=== PATIENT | female | born 1940 | race Caucasian/White ===

== ENCOUNTER 2022-03-05 13:04 | Inpatient (IN) ==
[2022-03-05] MEDS ORDERED: Naloxone 0.4 MG/ML INJ IVP PRN (16:30)
[2022-03-05] MEDS ORDERED: Ondansetron ODT 4 MG TAB.RAPDIS SL PRN (16:30)
[2022-03-05] MEDS ORDERED: Melatonin 3 MG TABLET PO PRN (16:30)
[2022-03-05 16:58] LABS: C-Reactive Protein 170 mg/L (Less than 10); Creatine Kinase 35 Units/L (30-223)
[2022-03-05] MEDS ORDERED: Gadolinium Contrast Agent (WT Based) IV PRN (16:59)
[2022-03-05] MEDS ORDERED: cefTRIAXone 1,000 MG in 0.9 % Sodium Chloride 10 ML IVP SCH (17:00)
[2022-03-05] MEDS ORDERED: *HR* LORazepam 0.5 MG TABLET PO ONE (17:08)
[2022-03-06 06:29] LABS: Basophils # 0.1 K/mcL (0.0-0.2); Basophils % 0.6 %; Eosinophils # 0.1 K/mcL (0.0-0.6); Eosinophils % 1.3 %; Hematocrit 38.4 % (35.3-44.9); Hemoglobin 12.8 g/dL (11.5-15.4); Immature Granulocytes % 0.2 % (0-4); Lymphocytes # 1.1 K/mcL (0.6-4.6); Lymphocytes % 11.8 %; Mean Corpuscular HGB Conc 33.3 g/dL (31.6-35.5); Mean Platelet Volume 10.4 fL (9.4-12.4); Monocytes % 11.1 %; Neutrophils # 6.8 K/mcL (1.6-8.9); Platelet Count 203 K/mcL (140-400); Red Blood Count 3.88 M/mcL (3.82-4.97); Red Cell Distribution Width 13.2 % (11.5-14.5); White Blood Count 9.1 K/mcL (4.3-11.1)
[2022-03-06 06:53] LABS: BUN/Creatinine Ratio 25 (6-26); Blood Urea Nitrogen 15 mg/dL (8-23); Calcium 8.6 mg/dL (8.6-10.3); Carbon Dioxide 24 mEq/L (23-29); Chloride 103 mEq/L (98-107); Glucose 77 mg/dL (70-105); Magnesium 1.8 mg/dL (1.6-2.6); Osmolality,Calculated 286 (280-300); Phosphorous 2.4 mg/dL (2.7-4.5); Potassium 3.5 mEq/L (3.5-5.1); Sodium 138 mEq/L (136-145); eGFR For African Americans > 60 (> 60); eGFR For Non-African Americans > 60 (> 60)
[2022-03-06] MEDS: cefTRIAXone 1,000 MG in Water for inj. (sterile) 10 ML IVP SCH (09:00)
[2022-03-06] MEDS: DilTIAZem CD (24hr) 300 MG CAP.ER.24H PO SCH (09:45)
[2022-03-06] MEDS: Aspirin 81 MG TAB.CHEW PO SCH (09:45)
[2022-03-07 06:12] LABS: Basophils % 0.6 %; Eosinophils # 0.2 K/mcL (0.0-0.6); Eosinophils % 2.7 %; Hematocrit 38.9 % (35.3-44.9); Immature Granulocytes % 0.3 % (0-4); Lymphocytes % 14.5 %; Mean Corpuscular HGB Conc 33.4 g/dL (31.6-35.5); Mean Corpuscular Hemoglobin 32.9 pg (28.0-33.3); Mean Corpuscular Volume 98.5 fL (83.0-100.0); Mean Platelet Volume 9.8 fL (9.4-12.4); Monocytes # 0.7 K/mcL (0.0-1.3); Neutrophils # 4.6 K/mcL (1.6-8.9); Platelet Count 229 K/mcL (140-400); Red Blood Count 3.95 M/mcL (3.82-4.97); Red Cell Distribution Width 12.9 % (11.5-14.5); Segmented Neutrophils % 70.9 %; White Blood Count 6.6 K/mcL (4.3-11.1)
[2022-03-07 06:32] LABS: BUN/Creatinine Ratio 22 (6-26); Blood Urea Nitrogen 13 mg/dL (8-23); Calcium 8.5 mg/dL (8.6-10.3); Carbon Dioxide 27 mEq/L (23-29); Chloride 104 mEq/L (98-107); Glucose 96 mg/dL (70-105); Osmolality,Calculated 284 (280-300); Potassium 3.6 mEq/L (3.5-5.1); Sodium 137 mEq/L (136-145); eGFR For African Americans > 60 (> 60); eGFR For Non-African Americans > 60 (> 60)
[2022-03-07] MEDS: DilTIAZem CD (24hr) 300 MG CAP.ER.24H PO SCH (09:28)
[2022-03-07] MEDS: cefTRIAXone 1,000 MG in Water for inj. (sterile) 10 ML IVP SCH (09:28)
[2022-03-07] MEDS: Aspirin 81 MG TAB.CHEW PO SCH (09:29)
[2022-03-07] MEDS ORDERED: *HR* Succinylcholine 200 MG/10 ML VIAL IVP ONE (09:46)
[2022-03-07] MEDS ORDERED: Lidocaine -MPF 2% 2 ML VIAL ONE (09:46)
[2022-03-07] MEDS ORDERED: *HR* Propofol 200 MG/20 ML VIAL IVP ONE (09:46)
[2022-03-07] MEDS ORDERED: Ondansetron 4 MG/2 ML VIAL IVP PRN (10:09)
[2022-03-07] MEDS ORDERED: *HR* HYDROmorphone PF 0.5 MG/0.5 ML SYRINGE IVP PRN (10:09)
[2022-03-07] MEDS ORDERED: *HR* FentaNYL (PF) 100 MCG/2 ML VIAL ONE (10:38)
[2022-03-07] MEDS ORDERED: Ondansetron 4 MG/2 ML VIAL ONE (10:52)
[2022-03-07] MEDS ORDERED: Acetaminophen IV 1,000 MG/100 ML BAG IVPB ONE (11:15)
[2022-03-07] MEDS ORDERED: Ketorolac 30 MG/ML VIAL ONE (11:18)
[2022-03-07] MEDS ORDERED: Melatonin 3 MG TABLET PO PRN (12:18)
[2022-03-07] MEDS ORDERED: Naloxone 0.4 MG/ML INJ IVP PRN (12:18)
[2022-03-07] MEDS ORDERED: Gadolinium Contrast Agent (WT Based) IV PRN (12:18)
[2022-03-07] MEDS ORDERED: Ondansetron ODT 4 MG TAB.RAPDIS SL PRN (12:18)
[2022-03-07] MEDS: Apixaban 2.5 MG TABLET PO SCH (22:13)
[2022-03-08] MEDS: Acetaminophen 325 MG TABLET PO PRN ×2 (00:23→12:06)
[2022-03-08 05:00] LABS: Hematocrit 39.8 % (35.3-44.9); Hemoglobin 13.2 g/dL (11.5-15.4); Mean Corpuscular HGB Conc 33.2 g/dL (31.6-35.5); Mean Corpuscular Hemoglobin 33.2 pg (28.0-33.3); Mean Corpuscular Volume 100.3 fL (83.0-100.0); Mean Platelet Volume 9.6 fL (9.4-12.4); Platelet Count 249 K/mcL (140-400); Red Blood Count 3.97 M/mcL (3.82-4.97); Red Cell Distribution Width 12.6 % (11.5-14.5); White Blood Count 6.4 K/mcL (4.3-11.1)
[2022-03-08 05:10] LABS: BUN/Creatinine Ratio 18 (6-26); Blood Urea Nitrogen 11 mg/dL (8-23); Calcium 8.1 mg/dL (8.6-10.3); Carbon Dioxide 24 mEq/L (23-29); Chloride 102 mEq/L (98-107); Glucose 82 mg/dL (70-105); Magnesium 1.7 mg/dL (1.6-2.6); Osmolality,Calculated 274 (280-300); Phosphorous 2.6 mg/dL (2.7-4.5); Potassium 3.5 mEq/L (3.5-5.1); Sodium 133 mEq/L (136-145); eGFR For African Americans > 60 (> 60); eGFR For Non-African Americans > 60 (> 60)
[2022-03-08 07:34] VITALS: TEMP 98.6; O2SAT 97
[2022-03-08] MEDS: Apixaban 2.5 MG TABLET PO SCH (08:01)
[2022-03-08] MEDS ORDERED: cefTRIAXone 1,000 MG in 0.9 % Sodium Chloride 10 ML IVP SCH (09:00)
[2022-03-08] MEDS ORDERED: Aspirin 81 MG TAB.CHEW PO SCH (09:00)
[2022-03-08] MEDS ORDERED: DilTIAZem CD (24hr) 300 MG CAP.ER.24H PO SCH (09:00)
[2022-03-08 10:11] VITALS: BP 160/50; PULSE 67
== END 2022-03-08 16:45 | disposition home or self-care (01) | DRG 501 ==
LOC: 4WAOSI 13:04 → EMEROOARM 13:04 → 4WAOSI 18:19 → SUATTDRO 18:25
PROVIDERS: ADMIT Internal Medicine; ATTEND Family Medicine

== ENCOUNTER 2022-04-05 19:08 | Inpatient (IN) ==
[2022-04-05] MEDS ORDERED: Naloxone 0.4 MG/ML INJ IVP PRN (22:51)
[2022-04-05] MEDS ORDERED: Ondansetron 4 MG/2 ML VIAL IVP PRN (22:51)
[2022-04-06 01:12] LABS: Basophils % 0.5 %; Eosinophils # 0.1 K/mcL (0.0-0.6); Eosinophils % 2.5 %; Hematocrit 39.1 % (35.3-44.9); Hemoglobin 13.2 g/dL (11.5-15.4); Immature Granulocytes % 0.2 % (0-4); Lymphocytes % 35.2 %; Mean Corpuscular HGB Conc 33.8 g/dL (31.6-35.5); Mean Corpuscular Hemoglobin 33.3 pg (28.0-33.3); Mean Corpuscular Volume 98.7 fL (83.0-100.0); Monocytes # 0.6 K/mcL (0.0-1.3); Monocytes % 10.4 %; Neutrophils # 2.9 K/mcL (1.6-8.9); Platelet Count 166 K/mcL (140-400); Red Blood Count 3.96 M/mcL (3.82-4.97); Segmented Neutrophils % 51.2 %; White Blood Count 5.7 K/mcL (4.3-11.1)
[2022-04-06] MEDS ORDERED: *HR* Heparin 5,000 UNIT/ML VIAL IVP PRN ×2 (01:21)
[2022-04-06 01:30] LABS: BUN/Creatinine Ratio 20 (6-26); Blood Urea Nitrogen 12 mg/dL (8-23); Calcium 8.7 mg/dL (8.6-10.3); Carbon Dioxide 26 mEq/L (23-29); Chloride 107 mEq/L (98-107); Glucose 113 mg/dL (70-105); Magnesium 1.8 mg/dL (1.6-2.6); Osmolality,Calculated 289 (280-300); Potassium 3.5 mEq/L (3.5-5.1); Sodium 139 mEq/L (136-145); eGFR For African Americans > 60 (> 60); eGFR For Non-African Americans > 60 (> 60)
[2022-04-06] MEDS ORDERED: Heparin 25,000UNIT/250ML 1/2NS 25,000 UNIT/250 ML IV.SOLN IVC SCH (01:30)
[2022-04-06 03:09] LABS: Hemoglobin 12.6 g/dL (11.5-15.4); Mean Corpuscular HGB Conc 34.1 g/dL (31.6-35.5); Mean Corpuscular Hemoglobin 33.7 pg (28.0-33.3); Mean Corpuscular Volume 98.9 fL (83.0-100.0); Mean Platelet Volume 10.4 fL (9.4-12.4); Platelet Count 155 K/mcL (140-400); Red Blood Count 3.74 M/mcL (3.82-4.97); White Blood Count 5.9 K/mcL (4.3-11.1)
[2022-04-06 03:12] LABS: INR 1.2; Prothrombin Time 13.3 Seconds (9.4-12.1)
[2022-04-06] MEDS ORDERED: Perflutren Lipid Microsphere 1.3 ML in 0.9 % Sodium Chloride 8.7 ML IVP PRN (08:38)
[2022-04-06] MEDS: Aspirin 81 MG TAB.CHEW PO SCH (09:29)
[2022-04-06] MEDS ORDERED: DilTIAZem CD (24hr) 120 MG CAP.ER.24H PO SCH (21:00)
[2022-04-07 04:43] VITALS: BP 130/75; PULSE 94; TEMP 97.9; O2SAT 93
[2022-04-07] MEDS: Aspirin 81 MG TAB.CHEW PO SCH (08:12)
[2022-04-07] MEDS ORDERED: Apixaban 2.5 MG TABLET PO SCH (09:00)
== END 2022-04-07 14:28 | disposition home or self-care (01) | DRG 310 ==
LOC: 2NENU → SUATTDRO 21:42
PROVIDERS: ADMIT Internal Medicine; ATTEND Internal Medicine